=== PATIENT | female | born 2000 | race Caucasian/White ===

== ENCOUNTER 2020-11-30 18:02 | Inpatient (IN) ==
[~2020-11-30 18:02] MED LIST: Dinoprostone 10 MG VAG.SUPP VAGINAL ONE
[2020-11-30 19:37] LABS: Urine Benzodiazepine Screen None Detected (None Detect); Urine Cannabinoids Screen None Detected (None Detect); Urine Opiates Screen None Detected (None Detect)
[2020-11-30] MEDS ORDERED: Lactated Ringers 1000 ml BAG 1,000 ML IV ONE (23:10)
[2020-11-30 23:55] LABS: ABS Lymphocytes 1.8 10^3/ul (1.0-4.8); ABS Neutrophils 9.4 10^3/ul (1.5-7.7); Eosinophil % 0.3 %; Hematocrit 37 % (35-47); Hemoglobin 12.3 g/dL (12.0-16.0); Lymphocyte % 14.9 %; Mean Corpuscular HGB Conc 33 g/dL (31-36); Mean Corpuscular Hemoglobin 27 pg (27-31); Mean Corpuscular Volume 80 fL (80-97); Mean Platelet Volume 7.5 fL (7.4-10.4); Platelet Count 279 10^3/uL (150-450); Red Blood Count 4.66 10^6 /uL (3.70-4.87); Red Cell Distribution Width 16 % (10-15); White Blood Count 12.3 10^3/uL (3.5-10.8)
[2020-12-01] MEDS ORDERED: OBEPIDURAL 250 ML EPIDURAL ONE (00:58)
[2020-12-01] MEDS ORDERED: Phenylephrine 40 mcg/mL 10mL (400mcg) SYRINGE IV PUSH PRN (01:44)
[2020-12-01] MEDS ORDERED: EPHEDrine (Pressors) 50 MG/ML VIAL IV PUSH PRN (01:44)
[2020-12-01] MEDS ORDERED: Sodium Citrate/Citric Acid LIQ 15 ML UDC PO PRN (01:44)
[2020-12-01] MEDS ORDERED: Lactated Ringers 1000 ml BAG 1,000 ML IV ONE (01:44)
[2020-12-01] MEDS ORDERED: OBEPIDURAL 250 ML EPIDURAL SCH (02:00)
[2020-12-01] MEDS ORDERED: Lactated Ringers 1000 ml BAG 1,000 ML IV SCH ×2 (02:00→09:00)
[2020-12-01 02:24] LABS: Urine Appearance Cloudy; Urine Bilirubin Negative (Negative); Urine Blood 2+ (Negative); Urine Color Yellow; Urine Glucose Negative (Negative); Urine Ketones Negative (Negative); Urine Nitrite Negative (Negative); Urine Protein 1+(30 mg/dL) (Negative); Urine Urobilinogen Negative (Negative)
[2020-12-01 02:31] LABS: Urine Bacteria Absent (Absent); Urine Red Blood Cell 3+(>10/hpf) (Absent); Urine Squamous Epithelial Cell Present (Absent); Urine White Blood Cell Trace(0-5/hpf) (Absent)
[2020-12-01] MEDS ORDERED: Oxytocin in LR 20 UNITS/1,000 ML BAG IVPB SCH ×2 (03:00→09:00)
[2020-12-01] MEDS ORDERED: Bupivacaine 0.25% SDV PF 10 ML VIAL INJ ONE (03:57)
[2020-12-01] MEDS ORDERED: Oxytocin in LR 20 UNITS/1,000 ML BAG IVPB ONE (07:12)
[2020-12-01] MEDS ORDERED: Dibucaine 1% OINT 28.35 GM TUBE PR PRN (08:12)
[2020-12-01] MEDS: Witch Hazel PAD JAR TOPICAL PRN (09:26)
[2020-12-01] MEDS ORDERED: Lidocaine 1% VIAL 10 MG/ML VIAL ONE (11:26)
[2020-12-02 07:32] LABS: ABS Basophils 0.1 10^3/ul (0-0.2); ABS Eosinophils 0.1 10^3/ul (0-0.6); ABS Lymphocytes 2.3 10^3/ul (1.0-4.8); ABS Monocytes 0.8 10^3/ul (0-0.8); ABS Neutrophils 6.9 10^3/ul (1.5-7.7); Eosinophil % 0.6 %; Hematocrit 33 % (35-47); Hemoglobin 11.1 g/dL (12.0-16.0); Lymphocyte % 23.2 %; Mean Corpuscular HGB Conc 34 g/dL (31-36); Mean Corpuscular Hemoglobin 27 pg (27-31); Mean Corpuscular Volume 79 fL (80-97); Platelet Count 203 10^3/uL (150-450); Red Blood Count 4.16 10^6 /uL (3.70-4.87); Red Cell Distribution Width 16 % (10-15); White Blood Count 10.1 10^3/uL (3.5-10.8)
[2020-12-03 07:48] VITALS: BP 115/73
[2020-12-03] MEDS: Witch Hazel PAD JAR TOPICAL PRN (11:54)
== END 2020-12-03 12:31 | disposition home or self-care (01) ==
LOC: MCHOBOUT 18:02 → MCHOB 18:15
PROVIDERS: ADMIT Midwife; ATTEND Midwife